=== PATIENT | female | born 1990 | race Caucasian/White ===

== ENCOUNTER 2023-11-27 20:50 | Inpatient (IN) ==
[2023-11-27] MEDS ORDERED: OXYTOCIN 30 UNITS/NSS 30 UNITS/500 ML BAG IV PRN (21:31)
[2023-11-27] MEDS ORDERED: LIDOCAINE 1% LOCAL 20 ML VIAL INFIL PRN (21:31)
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
[2023-11-27] MEDS: LACTATED RINGER'S 1,000 ML IV PRN (21:45)
[2023-11-27 22:41] LABS: Hematocrit (blood only) 35.9 % (37.0-47.0); Hemoglobin 12.5 g/dl (12.0-16.0); Mean Corpuscular Hemoglobin 33.2 pg (25.0-34.0); Mean Corpuscular Hgb Conc 34.8 g/dL (32.0-36.0); Mean Corpuscular Volume 95.5 fL (80.0-100.0); Mean Platelet Volume 9.7 fL (9.4-12.4); Platelet Count 280 K/uL (130-400); RDW Coefficient of Variation 12.2 % (11.5-14.5); RDW Standard Deviation 42.5 fL (36.4-46.3); Red Blood Count 3.76 M/uL (4.20-5.40); White Blood Count 17.32 K/ul (4.8-10.8)
[2023-11-27] MEDS ORDERED: diphenhydrAMINE 50 MG/ML VIAL IV PRN (22:56)
[2023-11-27] MEDS ORDERED: fentANYL 2 MCG/ML BUPIVacaine 0.125%-NSS 100ML BAG EPI PRN (22:56)
[2023-11-27] MEDS ORDERED: ROPIVACAINE 0.5% PF 5 MG/ML 20 ML VIAL EPI PRN (22:56)
[2023-11-27] MEDS ORDERED: NALBUPHINE HCL 5 MG in SYRINGE 0 ML IV PRN (22:56)
[2023-11-27] MEDS ORDERED: LIDOCAINE 2% MPF LOCAL 5 ML VIAL EPI PRN (22:56)
[2023-11-27] MEDS ORDERED: ePHEDrine sulfate 50 MG/ML AMP IV PRN (22:56)
[2023-11-27] MEDS ORDERED: NALOXONE HCL 1 MG in SODIUM CHLORIDE 0.9% 1,000 ML IV PRN (22:56)
[2023-11-27] MEDS ORDERED: BUPIVACAINE 0.25% PF 30 ML VIAL EPI PRN (22:56)
[2023-11-27] MEDS ORDERED: NALOXONE HCL 0.4 MG/1 ML VIAL/CARP IV PRN (22:56)
[2023-11-27] MEDS ORDERED: SODIUM CHLORIDE 0.9% PF INJ 10 ML VIAL EPI PRN (22:56)
[2023-11-27] MEDS ORDERED: fentaNYL citrate PF 100 MCG/2 ML VIAL EPI PRN (22:56)
--- NOTE | 2023-11-27 22:58 | Anesthesiology Consultation ---
Date of Service November 27, 2023 Assessment & Plan Chart Review Chart Review: Patient NOT seen in Pre Admission Testing and Acceptable Risk for Labor Epidural Consults Requested none ASA ASA2 Proposed Anesthesia Anesthesia Type: Labor Epidural Risk / Benefits Reviewed With: PT / POA / Parent / Guardian, Accepts Plan and Informed Consent Obtained History Height/Weight Height: 5 ft 6 in Weight: 106.141 kg Allergies Allergy/AdvReac Type Severity Reaction Status Date / Time No Known Allergies Allergy Verified 11/22/23 11:39 Medications Home Medications Medication Instructions Recorded Confirmed Last Taken docosahexaenoic acid [ DHA] 1 tab PO DAILY 11/26/22 11/27/23 1 Day Ago ~11/26/23 omega-3 fatty acids [Fish Oil] 1 cap PO DAILY 03/01/23 11/27/23 1 Day Ago ~11/26/23 ferrous sulfate 325 mg (65 mg 325 mg PO DAILY 10/15/23 11/23/23 1 Day Ago iron) tablet (FeroSul) ~11/26/23 breast pump #1 ea 11/05/23 11/23/23 Unknown Active Medications Generic Name Dose Route Start Last Admin Trade Name Freq PRN Reason Stop Dose Admin Lactated Ringer's 1,000 mls @ 125 mls/hr 11/27/23 21:31 11/27/23 22:16 Lr IV 11/29/23 21:30 125 mls/hr .Q8H PRN Infusion L&D Protocol Protocol NPO Date Last Intake of Fluids: 11/27/23 Time Last Intake of Fluids: 22:00 Date Last Intake of Solids: 11/27/23 Time Last Intake of Solids: 18:00 Past Medical History Medical History Varicella vaccination Hypothyroid Dyslipidemia Family history of cancer Brother- mucinous adenocarcinoma History of endometriosis Family history of diabetes mellitus Family history of hypertension Exercise / Class Metabolic Activity 1 > 8 Run/Swim/Ski/Tennis Past Family History Family History Brother Colorectal cancer, Onset Age: 31 In remission - is genetic Other Dyslipidemia Hypertension Denies family history of Ovarian cancer Prostate cancer Myocardial infarction Breast cancer Uterine cancer Past Surgical History Surgical History S/P laparoscopic procedure dx scope for endo, scar removal History of wisdom tooth extraction History of tonsillectomy and adenoidectomy Past Anesthesia History No Hx of Anesthesia Complications and No Family Hx of Anesthesia Complications History of PONV No Hx of PONV and No Hx of Motion Sickness Social History Smoking Status: Never smoker Do You Dip or Chew Tobacco: No Hx Alcohol Use: No Hx Substance Use: No Review of Systems ROS Unobtainable: All systems reviewed & are unremarkable except as noted in HPI & below Physical Exam Vital Signs Last Vital Signs Temp 36.5 C 11/27/23 21:16 Pulse 99 H 11/27/23 22:55 Resp 16 11/27/23 21:16 BP 131/76 11/27/23 21:16 Pulse Ox 98 11/27/23 22:55 ENMT Mouth: no TMJ abnormality Thyromental Distance: > or= 3.5 Finger Breadths Mallampati Class: II Neck normal visual inspection and trachea midline; neck extension not limited Respiratory normal respiratory effort Auscultation: lungs clear to auscultation bilaterally Cardiovascular Rate/Rhythm: regular rate and regular rhythm Heart Sounds: no murmur Musculoskeletal Spine: normal cervical ROM Extremities: full ROM of extremities Neurologic moves all extremities Psychiatric Orientation: alert and oriented x 3 Testing Laboratory Results 11/27/23 22:26
[2023-11-27] MEDS ORDERED: ONDANSETRON INJ 2 MG/ML 2 ML VIAL IV PRN (23:01)
[2023-11-27] MEDS: LIDOCAINE 2%/EPINEPHRINE 1:200,000 20 ML PF ONE (23:21)
[2023-11-27] MEDS: fentaNYL citrate PF 100 MCG/2 ML VIAL ONE (23:21)
[2023-11-27] MEDS: BUPIVACAINE 0.25% PF 30 ML VIAL ONE (23:21)
[2023-11-27] MEDS: fentANYL 2 MCG/ML BUPIVacaine 0.125%-NSS 100ML BAG ONE (23:22)
[2023-11-28] MEDS: SODIUM CHLORIDE 0.9% PF INJ 10 ML VIAL EPI STA (00:24)
[2023-11-28] MEDS: SODIUM CHLORIDE 0.9% PF INJ 10 ML VIAL ONE (00:25)
[2023-11-28] MEDS: BUPIVACAINE 0.25% PF 30 ML VIAL EPI STA (00:25)
[2023-11-28] MEDS: LIDOCAINE 2%/EPINEPHRINE 1:200,000 20 ML PF EPI STA (00:25)
[2023-11-28] MEDS: fentaNYL citrate PF 100 MCG/2 ML VIAL EPI STA (00:25)
[2023-11-28] MEDS: ePHEDrine sulfate 50 MG/ML AMP ONE (00:25)
[2023-11-28] MEDS: CALCIUM CARBONATE 500 MG CHEWABLE TAB PO PRN (00:33)
--- NOTE | 2023-11-28 00:50 | Labor Progress Brief Note ---
Date of Service November 28, 2023 Subjective comfortable Assessment & Plan (1) Normal labor: Plan reassuring fetus, labor down. anticipate . Admission and Anticipated Discharge Date Admission Date: November 27, 2023 Physical Exam Physical Exam: cx--ant lip/0 toco--q2-3 min arom--small , clear efm--just after epidural placed the baby had some late appearing decels which improved with position change, now 140s with mod variability, accels present, no decels Results & Data Vital Signs (Past 12 Hours) Vital Signs Temp Pulse Resp BP Pulse Ox 11/28/23 00:45 113 H 97 11/28/23 00:41 108 H 109/65 11/28/23 00:40 109 H 97 11/28/23 00:35 124 H 99 11/28/23 00:30 121 H 16 98 11/28/23 00:25 113 H 98 11/28/23 00:20 120 H 103/56 L 97 11/28/23 00:15 117 H 96 11/28/23 00:10 120 H 98 11/28/23 00:05 98 11/28/23 00:05 120 H 11/28/23 00:05 118 H 117/67 11/28/23 00:00 119 H 16 98 11/27/23 23:55 123 H 99 11/27/23 23:50 123 H 98 11/27/23 23:47 131 H 125/59 L 11/27/23 23:45 119 H 99 11/27/23 23:43 120 H 130/63 11/27/23 23:40 130 H 99 11/27/23 23:37 116 H 133/76 11/27/23 23:35 114 H 99 11/27/23 23:31 100 H 130/72 11/27/23 23:30 16 11/27/23 23:30 16 11/27/23 23:30 102 H 16 98 11/27/23 23:29 110 H 135/78 11/27/23 23:27 100 H 132/68 11/27/23 23:25 99 11/27/23 23:25 102 H 11/27/23 23:25 96 H 131/75 11/27/23 23:23 96 H 135/76 11/27/23 23:21 90 134/78 08/24/24 23:20 95 H 16 98 11/27/23 23:19 92 H 134/77 11/27/23 23:16 95 H 148/73 H 11/27/23 23:15 101 H 99 11/27/23 23:10 104 H 99 11/27/23 23:05 89 98 11/27/23 23:00 89 99 11/27/23 22:55 99 H 98 11/27/23 22:46 89 96 11/27/23 21:16 36.5 C 96 H 16 131/76 11/27/23 21:08 96 H 131/76 Coding Level of Care Code None Diagnoses Normal labor O80; Z37.9
[2023-11-28] MEDS: OXYTOCIN 30 UNITS/NSS 30 UNITS/500 ML BAG IV PRN (02:29)
--- NOTE | 2023-11-28 02:45 | Delivery Summary ---
Vaginal Delivery Summary Date of Service November 28, 2023 Vaginal Delivery Summary and 2nd Degree LAC Pre-operative Diagnosis: at 40 5/7 labor Post-operative Diagnosis: same Procedure: epidural arom second degree lac repair QBL: 268 Anesthesia: epidural Procedure: The patient presented to labor and delivery in active labor at 5cm. She underwent and epidural. The when anterior lip, arom for clear fluid. Progressed to c/c/+2. The patient pushed for about 4 contractions to deliver a viable female infant in taylor position. The nose and mouth were bulb suctioned on the perineum and the rest of the infant was then delivered without difficulty. A loose nuchal cord was reduced. The baby was vigorous. The nose and mouth were again bulb suctioned and the infant was placed in the maternal abdomen for drying and attention. Cord was clamped and cut at one minute of left. Cord blood and segment obtained. Placenta delivered spontaneous, intact with a three vessel cord. Cervix/sulci/rectum were intact. A second degree perineal laceration was repaired in the normal standard fashion. Hemostasis obtained with dilute pitocin and fundal massage. Apgars were 8/9. Mother and baby doing well at the end of the delivery. [facility] [place] Vaginal Delivery Charge Delivery Type Details: and 2nd Degree LAC
[2023-11-28] MEDS ORDERED: HYDROCORTISONE ACETATE 25 MG SUPP PR PRN (02:48)
[2023-11-28] MEDS ORDERED: oxyCODONE/ACETAMINOPHEN 5mg/325mg TAB PO PRN (02:48)
[2023-11-28] MEDS ORDERED: DIPHTHER/TETAN/PERTUS Vaccine (Tdap, Adol/Adult) 0.5mL IM ONE (02:48)
[2023-11-28] MEDS ORDERED: bisacodyL 10 MG SUPP PR PRN (02:48)
[2023-11-28] MEDS: IBUPROFEN 600 MG TAB PO PRN (04:06)
[2023-11-28] MEDS: PRENATAL VITAMIN 1 TAB PO SCH (07:10)
[2023-11-28] MEDS: DOCUSATE SODIUM 100 MG CAP PO SCH (07:10)
[2023-11-28] MEDS: ACETAMINOPHEN 325 MG TAB PO PRN (07:10)
[2023-11-28 07:23] LABS: Hematocrit (blood only) 32.7 % (37.0-47.0); Hemoglobin 11.1 g/dl (12.0-16.0)
[2023-11-28] MEDS: BENZOCAINE 20% SPRY 85 APPLN/85 GM CAN EXT PRN (07:52)
--- NOTE | 2023-11-28 09:40 | Anesthesia Procedure Note ---
Date of Service November 28, 2023 Anesthesia Post Epidural Note Vital Signs Vital Signs: Temp Pulse Resp BP Pulse Ox O2 Del Method 36.9 C 99 H 18 126/76 97 Room Air 11/28/23 04:58 11/28/23 04:58 11/28/23 04:58 11/28/23 04:58 11/28/23 04:58 11/28/23 04:58 Pain Intensity Bilateral Abdomen: Pain Intensity: 0 Notes Mental Status: alert / awake / arousable and participated in evaluation Nausea / Vomiting: adequately controlled Pain: adequately controlled Airway Patency, RR, SpO2: stable & adequate BP & HR: stable & adequate Hydration State: stable & adequate Neuraxial Anesthesia: was administered and sensory block is resolving Anesthetic Complications: no major complications apparent and Pt Satisfied with anesthetic care Epidural: Removed without complications and With tip intact
[2023-11-28] MEDS: bisacodyL 5 MG TABEC PO SCH (20:00)
--- NOTE | 2023-11-29 07:15 | Obstetrical Progress Note ---
Date of Service November 29, 2023 Assessment & Plan (1) Encounter for assessment: visit type: exam and care immediately after delivery Qualified Code(s): Z39.0 - Encounter for care and examination of mother immedia tely after delivery Plan Doing well. Routine care. Would like more breast feeding help. Consider d/c tonight if all goes well, if not , stay til tomorrow. Day #:: 1 Subjective Ambulation: ambulating normally Voiding: no voiding problems Passing Gas:: Yes Diet Tolerance:: regular diet Lochia:: Small Feeding Type:: breast feeding Concerned with breast feeding Physical Exam Constitutional WD/WN, vitals as above Respiratory normal respiratory effort, lungs clear to auscultation Cardiovascular RRR, no murmur, no edema Extremities: + edema (tr); no calf tenderness Gastrointestinal (Abdomen) soft, nt,nd ff/nt 1 below u Psychiatric A+Ox3, euthymic affect Results & Data Vital Signs (Past 12 Hours) Vital Signs Temp Pulse Resp BP Pulse Ox O2 Del Method 11/28/23 23:05 36.9 C 84 18 127/79 97 Room Air 11/28/23 19:36 36.3 C L 87 18 125/77 98 Room Air
[2023-11-29 08:27] VITALS: RESP 16
[2023-11-29] MEDS ORDERED: diphenhydrAMINE Capsule 25 MG CAP PO PRN (10:41)
[2023-11-29 23:45] VITALS: O2SAT 98
--- NOTE | 2023-11-30 06:51 | Obstetrical Progress Note ---
Date of Service November 30, 2023 Assessment & Plan (1) Encounter for assessment: Plan: PPD#2: stable, continue routine care, plan for d/c after meeting planning consultant Admission and Anticipated Discharge Date Admission Date: November 27, 2023 Supervising Physician Co-Signing Physician Notes Resident Physician Supervision Note: I interviewed and examined the patient. Discussed with Dr. Guillory and agree with findings and plan as documented in the note. Any exceptions or clarifications are listed here: PPD#2 doing well. DC home today. Instructions reviewed. Documented By: Yaa Solo DO Subjective Bre is a 32yo who is PPD#2 following at term. Slight cramping after breast feeding, some pressure near suture, managed well with motrin Is voiding Is tolerating normal diet Can ambulate on own. Some improvement in lochia this morning. Currently breast feeding. Review of Systems Constitutional: no fever, no chills and no sweats Respiratory: no dyspnea Cardiovascular: no chest pain, no palpitations and no calf pain Genitourinary: no dysuria Neurologic: no headache(s) Physical Exam Physical Exam: General: Alert, oriented. No acute distress. Cardiac: Regular rate and rhythm, no murmurs, rubs, or gallops. Respiratory: Clear to auscultation bilaterally, no wheezes/rales/rhonchi. No increased work of breathing. Symmetrical chest rise. No respiratory distress. Abdomen: Soft, nontender, nondistended. Bowel sounds present. Uterus: Uterine fundus firm, palpable at the level of the umbilicus. Lower extremities: No lower extremity edema or swelling. No deep calf pain. Results & Data Vital Signs (Past 12 Hours) Vital Signs Temp Pulse Resp BP Pulse Ox O2 Del Method 11/29/23 23:44 36.7 C 89 16 120/76 98 Room Air 11/29/23 19:35 36.5 C 86 16 97 Room Air Resident Activity Tracking Resident Involvement: Resident Care Provided Care Provided: Adult Hospital Medicine (1) Encounter for assessment visit type: exam and care immediately after delivery Qualified Code(s): Z39.0 - Encounter for care and examination of mother immediately after delivery
[2023-11-30 08:58] VITALS: BP 119/78; PULSE 83; TEMP 98.2
== END 2023-11-30 14:00 | disposition home or self-care (01) | DRG 807 ==
LOC: OPB 20:50 → 4S1 21:05 → 4E2 11-28 05:07